=== PATIENT | female | born 1985 | race Caucasian/White ===

== ENCOUNTER 2019-06-18 00:57 | Emergency (ER) | payer MEDICAID ==
[~2019-06-18] VITALS: Ht 165.1 cm; Wt 136.0 kg
[2019-06-18 01:24] VITALS: BP 167/90
[2019-06-18 01:31] LABS: BASOPHILS # (AUTO) 0.04 x10^3/uL (0-0.1); BASOPHILS % (AUTO) 1 % (0-1); EOSINOPHILS # (AUTO) 0.08 x10^3/uL (0-0.4); EOSINOPHILS % (AUTO) 1 % (1-7); LYMPHOCYTES # (AUTO) 2.24 x10^3/uL (1-3.4); LYMPHOCYTES % (AUTO) 26 % (22-44); MD NO; MEAN CORPUSCULAR HEMOGLOBIN 31.2 pg (27.0-34.8); MEAN CORPUSCULAR HGB CONC 33.6 g/dL (32.4-35.8); MEAN PLATELET VOLUME 10.1 fL (7.4-10.4); MONOCYTES # (AUTO) 0.67 x10^3/uL (0.2-0.8); MONOCYTES % (AUTO) 8 % (2-9); NEUTROPHILS # (AUTO) 5.47 x10^3/uL (1.8-6.8); NEUTROPHILS % (AUTO) 64 % (42-75); PLATELET COUNT 251 x10^3/uL (130-400); RED CELL DISTRIBUTION WIDTH 14.4 % (9.6-15.2)
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
[2019-06-18 01:42] LABS: ALANINE AMINOTRANSFERASE 37 U/L (12-78); ALBUMIN 3.3 g/dL (3.4-5.0); ANION GAP 6 mmol/L (5-15); CALCIUM 8.9 mg/dL (8.5-10.1); CHLORIDE 108 mmol/L (98-107); CREATININE 0.67 mg/dL (0.55-1.02); SALICYLATE LEVEL 2.4 mg/dL (2.8-20.0)
[2019-06-18 01:43] LABS: MICROSCOPIC INDICATED
[2019-06-18 01:46] LABS: ALKALINE PHOSPHATASE 80 U/L (45-117); BILIRUBIN,TOTAL 0.8 mg/dL (0.2-1.0); TOTAL PROTEIN 7.6 g/dL (6.4-8.2)
[2019-06-18 01:51] LABS: AMPHETAMINE SCREEN, URINE Positive (Negative); BARBITURATE SCREEN, URINE Negative (Negative); BENZODIAZEPINE SCREEN, URINE Negative (Negative); CANNABINOID SCREEN, URINE Positive (Negative); COCAINE SCREEN, URINE Negative (Negative); METHADONE SCREEN, URINE Negative (Negative); OPIATE SCREEN, URINE Negative (Negative)
[2019-06-18 01:52] LABS: CULTURE INDICATED? YES
--- NOTE | 2019-06-18 02:13 | NUR ---
PT SPOKE WITH DR ROMEO AND DENIES SI/HI TO AND HE STATES THAT WE CAN HELP YOU GET [facility] THIS EVENING AND PT IS AMICABLE TO THIS PLAN.
== END 2019-06-18 02:40 | disposition home or self-care (01) ==
LOC: ED 01:59
DX: F32.9 Major depressive disorder, single episode, unspecified (principal); F15.10 Other stimulant abuse, uncomplicated; Z72.9 Problem related to lifestyle, unspecified; F17.210 Nicotine dependence, cigarettes, uncomplicated; I10 Essential (primary) hypertension
CPT/HCPCS: 36415; 80053; 80307; 81001; 84703; 85025; 87086; 99284

== ENCOUNTER 2019-11-25 10:47 | Emergency (ER) | payer MEDICAID ==
[~2019-11-25] VITALS: Ht 165.1 cm; Wt 136.0 kg
[2019-11-25 11:01] VITALS: BP 184/97
[2019-11-25] MEDS ORDERED: ACETAMINOPHEN 325 MG TABLET ONE (11:13)
[2019-11-25] MEDS ORDERED: KETOROLAC 60 MG/2 ML ONE (11:13)
[2019-11-25] MEDS ORDERED: NEOSPORIN OINT. PKT 1 PACKET ONE (11:13)
--- NOTE | 2019-11-25 11:19 | NUR ---
MEDS ADMIN PER AUG. MEDIAL RIGHT FOOT ABRASION CLEANED AND BACITRACIN APPLIED.
[2019-11-25] MEDS ORDERED: KETOROLAC 30 MG/1 ML IM ONE (11:30)
[2019-11-25] MEDS ORDERED: ACETAMINOPHEN 325 MG TABLET PO ONE (11:30)
--- NOTE | 2019-11-25 13:11 | NUR ---
XRAY TO LOOK INTO XRAY RESULTS.
--- NOTE | 2019-11-25 13:39 | NUR ---
ALL RESULTS ARE BACK AT THIS TIME. CHART UP FOR RECHECK.
== END 2019-11-25 14:32 | disposition home or self-care (01) ==
LOC: ED 11:15
DX: S90.31XA Contusion of right foot, initial encounter (principal); X58.XXXA Exposure to other specified factors, initial encounter; Y93.89 Activity, other specified; Y92.410 Unspecified street and highway as the place of occurrence of the external cause; Y99.8 Other external cause status
CPT/HCPCS: 73630; 96372; 99283; J1885

== ENCOUNTER 2020-01-15 15:28 | Emergency (ER) | payer MEDICAID ==
[~2020-01-15] VITALS: Ht 165.1 cm; Wt 137.8 kg
--- NOTE | 2020-01-15 15:35 | NUR ---
EKG IN TRIAGE, BP 197/113. PT NON COMPLIANT W BP MEDS, DENIES VISION CHANGES, SLIGHT COWAN
[2020-01-15] MEDS ORDERED: DEXAMETHASONE 4 MG TABLET PO ONE (16:00)
[2020-01-15] MEDS ORDERED: BICILLIN-LA 1,200,000 UNITS/2 ML IM ONE (16:00)
[2020-01-15] MEDS ORDERED: LISINOPRIL 20 MG TABLET PO ONE (16:00)
[2020-01-15] MEDS ORDERED: DEXAMETHASONE 4 MG TABLET ONE (16:09)
[2020-01-15] MEDS ORDERED: LISINOPRIL 20 MG TABLET ONE (16:09)
--- NOTE | 2020-01-15 16:19 | NUR ---
PT MEDICATED PER ERP ORDER. MED REQUEST FOR BICILLIN SENT TO PHARMACY. URINE COLLECTED/SENT TO LAB. CALL LIGHT WITHIN REACH.
[2020-01-15 16:26] LABS: MICROSCOPIC INDICATED
--- NOTE | 2020-01-15 16:50 | NUR ---
ADD ON LABS ORDERED, TECH IN TO DRAW. VS RECHECK/UPDATED IN COMPUTER. CALL LIGHT WITHIN REACH.
[2020-01-15 17:16] LABS: ANION GAP 6 mmol/L (5-15); CALCIUM 8.6 mg/dL (8.5-10.1); CHLORIDE 106 mmol/L (98-107); CREATININE 0.61 mg/dL (0.55-1.02)
--- NOTE | 2020-01-15 17:20 | NUR ---
LAB RESULTS BACK, PT FOR RECHECK.
[2020-01-15 17:43] VITALS: BP 124/74
== END 2020-01-15 17:45 | disposition home or self-care (01) ==
LOC: ED 16:46
DX: J02.0 Streptococcal pharyngitis (principal); I10 Essential (primary) hypertension; R09.81 Nasal congestion; H92.03 Otalgia, bilateral; R00.0 Tachycardia, unspecified; F17.200 Nicotine dependence, unspecified, uncomplicated
CPT/HCPCS: 36415; 80048; 81001; 87086; 93005; 96372; 99284; J0561